=== PATIENT | male | born 1945 | race Caucasian/White ===

== ENCOUNTER → 2016-11-06 | Outpatient (REF) | payer MEDICARE, BC ==
[~2016-11-06] MED LIST: ASCO500T20 PO; CALC500T55 PO; MULT-116 PO
[2016-11-06 15:59] LABS: ALBUMIN 4.1 g/dL (3.4-5.0); ANION GAP 12.7 MEQ/L (3-15); CALCULATED IONIZED CALCIUM 4.3 mg/dL (3.8-4.6); TOTAL PROTEIN 6.7 g/dL (6.4-8.5)
== END ==
LOC: LAB 14:41
PROVIDERS: ATTEND Family Medicine
DX: Z00.00 Encounter for general adult medical examination without abnormal findings (principal); Z13.6 Encounter for screening for cardiovascular disorders
CPT/HCPCS: 80053; 80061